=== PATIENT | male | born 1940 | race Caucasian/White ===

== ENCOUNTER 2016-07-27 16:58 | Emergency (ER) | payer OTHER ==
[2016-07-27 17:05] VITALS: BMI 38.7
--- NOTE | 2016-07-27 17:26 | PDOC ---
History of Present Illness - General History Source: Patient Exam Limitations: No Limitations - History of Present Illness Initial Comments: 07/27/16 19:06 The patient is a 76 year old male with past medical history of hypertension, Afib, gout, lymphoma (diagnosed 2015, last chemo in 03/2016), and prostate cancer who presents to the ED with complaints of worsening cold symptoms for the past day. He complains of runny nose, productive cough with clear sputum, and sore throat. He reports being diagnosed with pneumonia one month ago in which he was treated with a course of antibiotics. The patient relates his current symptoms to those he experienced when he had pneumonia. He reports taking Coricidin for his symptoms with improvement of sypmtoms.. The patient denies any fever, although has a low grade temp in the ED. He denies chills, nausea, vomiting, diarrhea, PEARCE, CP, or leg swelling. The patient adds that he is a pack a day smoker for 30 yrs, but quit 8 yrs ago. Pt does endorse mild LE edema for which he is onlasix but has not been significantly worse. <Mariajose Sepulveda - Last Filed: 07/27/16 19:06> <Bud Akbar - Last Filed: 07/29/16 10:09> - General Chief Complaint: Cold Symptoms Stated Complaint: COLD Time Seen by Provider: 07/27/16 17:07 Past History <Mariajose Sepulveda - Last Filed: 07/27/16 19:06> - Past Medical History Cancer: Yes Cardiac Disorders: Yes (AFIB) HTN: Yes Hypercholesterolemia: Yes Other medical history: GOUT - Psycho/Social/Smoking Cessation Hx Suicidal Ideation: No Smoking History: Never smoked Hx Alcohol Use: No Drug/Substance Use Hx: No Substance Use Type: None <Bud Akbar - Last Filed: 07/29/16 10:09> - Past Medical History Allergies/Adverse Reactions: Allergies Allergy/AdvReac Type Severity Reaction Status Date / Time No Known Allergies Allergy Verified 07/27/16 16:59 Home Medications: Ambulatory Orders Allopurinol [Zyloprim -] 0 mg PO DAILY 07/27/16 Azithromycin [Zithromax 250mg Tablets -] 250 mg PO DAILY #6 tab 07/27/16 Warfarin Sodium [Coumadin] 0 mg PO DAILY 07/27/16 Review of Systems - Review of Systems Able to Perform ROS?: Yes Comments:: 07/27/16 19:06 "CONSTITUTIONAL: No reported: Fever, Chills, Diaphoresis, Generalized Weakness, Malaise, Loss of Appetite HEENT: reported: Rhinorrhea, Nasal Congestion, Throat Pain, No reported:Throat Swelling, Difficulty Swallowing, Mouth Swelling, Ear Pain, Eye Pain, Visual Changes CARDIOVASCULAR: No reported: Chest Pain, Syncope, Palpitations, Irregular Heart Rate, Lightheadedness, Peripheral Edema RESPIRATORY: reported: Cough No reported: Shortness of Breath, SOB with Exertion, Orthopnea, Wheezing, Stridor, Hemoptysis GASTROINTESTINAL: No reported: Abdominal pain, Abdominal Distension, Nausea, Vomiting, Diarrhea, Constipation, Melena, Hematochezia GENITOURINARY: No reported: Dysuria, Frequency, Urgency, Hesitancy, Flank Pain, Genital Pain MUSCULOSKELETAL: No reported: Myalgia, Arthralgia, Joint Swelling, Back pain, Neck Pain SKIN: No reported: Rash, Itching, Pallor HEMEATOLOGIC/IMMUNOLOGIC: No reported: Easy Bleeding, Easy Bruising, Lymphadenopathy, Frequent infections ENDOCRINE: No reported: Unexplained Weight Gain, Unexplained Weight Loss, Heat Intolerance , Cold Intolerance NEUROLOGIC: No reported: Headache, Focal Weakness, Paresthesias, Vertigo, Lightheadedness, Unsteady Gait, Seizure, Mental Status Changes, Incontinence PSYCHIATRIC: No reported: Anxiety, Depression " All Other Systems: Reviewed and Negative <Mariajose Sepulveda - Last Filed: 07/27/16 19:06> *Physical Exam - Vital Signs Last Vital Signs Temp Pulse Resp BP Pulse Ox 100.0 F H 93 H 18 162/90 100 07/27/16 16:59 07/27/16 16:59 07/27/16 16:59 07/27/16 16:59 07/27/16 16:59 - Physical Exam Comments: 07/27/16 19:07 "GENERAL: The patient is awake, alert, and fully oriented, Nontoxic - in no acute distress. HEAD: Normocephalic, atraumatic. EYES: extraocular movements intact, sclera anicteric, conjunctiva clear. ENT: Normal voice, Moist mucous membranes. NECK: Normal range of motion, supple LUNGS: Mild scattered rhonchi bilaterally. No wheezes and no rales. speaking complete sentences no acute respiratory distress HEART: Irregular heart rate. No murmur, rub or gallop. ABDOMEN: Soft, nontender, normoactive bowel sounds. No guarding, no rebound.No CVA tenderness EXTREMITIES: +1 pedal edema to lema. Normal range of motion. No clubbing or cyanosis. No cords, erythema, or tenderness. NEUROLOGICAL: No facial assymetry, Normal speech, PSYCH: Normal mood, normal affect. SKIN: Warm, Dry, normal turgor," <Mariajose Sepulveda - Last Filed: 07/27/16 19:06> - Vital Signs Last Vital Signs Temp Pulse Resp BP Pulse Ox 100.0 F H 93 H 18 162/90 100 07/27/16 16:59 07/27/16 16:59 07/27/16 16:59 07/27/16 16:59 07/27/16 16:59 <Bud Akbar - Last Filed: 07/29/16 10:09> ED Treatment Course - Medications Given in the ED: ED Medications Discontinued Medications Generic Name Dose Route Start Last Admin Trade Name Barrera PRN Reason Stop Dose Admin Acetaminophen 650 mg 07/27/16 17:28 07/27/16 17:40 Tylenol - PO 07/27/16 17:29 650 mg ONCE ONE Administration <DerickMariajose - Last Filed: 07/27/16 19:06> Medical Decision Making - Medical Decision Making 07/27/16 17:58 76Y Y M hx of afib presents with nasal congestion, sore throat, intrmittent productive cough productive of whitish sputum, pt had recent dx of pna 1 month ago for similar sypmtoms so presents for reevaluation. will obtain cxr to r/o pna 07/27/16 18:58 cxr noted for suggestion of infiltrate on RLL will give zithromax return precautions were discussed I discussed the physical exam findings, ancillary test results and final diagnoses with the patient. I answered all of the patient's questions. The patient was satisfied with the care received and felt comfortable with the discharge plan and treatment plan. The patient will call their primary care physician within 24 hours to arrange follow-up and will return to the Emergency Department with any new, persistent or worsening symptoms. <Bud Akbar - Last Filed: 07/29/16 10:09> *DC/Admit/Observation/Transfer - Attestations Scribe Attestion: 07/27/16 19:07 Documentation prepared by Mariajose Sepulveda, acting as certified medical technician for Bud Akbar MD. <Mariajose Sepulveda - Last Filed: 07/27/16 19:06> - Discharge Dispostion Admit: No <Bud Akbar - Last Filed: 07/29/16 10:09> Diagnosis at time of Disposition: Bronchitis - Discharge Dispostion Disposition: HOME Condition at time of disposition: Improved - Prescriptions Prescriptions: Azithromycin [Zithromax 250mg Tablets -] 250 mg PO DAILY #6 tab - Referrals Referrals: Jemima Kumar [Other] - Patient Instructions Printed Discharge Instructions: DI for Acute Bronchitis, DI for Viral Upper Respiratory Infection -- Adult Additional Instructions: Return to the emergency department immediately with ANY new, persistent or worsening symptoms. You MUST call and follow up with your doctor tomorrow for further evaluation of your symptoms. Results were discussed with you. Please make sure your doctor reviews the results of your emergency evaluation. If you had any xrays during your visit, it was read preliminarily by myself, a Radiologist will review it and if there are any additional findings we will call you. Print Language: NEPALESE
[2016-07-27] MEDS ORDERED: ACETAMINOPHEN 325 MG TABLET (FP) PO ONE (17:28)
[2016-07-27 19:12] VITALS: BP 129/75; PULSE 88; TEMP 99.3
== END 2016-07-27 19:20 | disposition home or self-care (01) ==
LOC: FER 16:58
DX: J40 Bronchitis, not specified as acute or chronic (principal); I48.91 Unspecified atrial fibrillation; I10 Essential (primary) hypertension; E78.00 Pure hypercholesterolemia, unspecified; Z85.9 Personal history of malignant neoplasm, unspecified; Z87.891 Personal history of nicotine dependence
CPT/HCPCS: 71020-TC; 99281-25